=== PATIENT | female | born 1950 | race Caucasian/White ===

== ENCOUNTER → 2020-09-29 | Outpatient (CLI) | payer OTHER ==
--- NOTE | 2020-09-29 12:47 | XR ---
Right foot HISTORY: Trauma and pain 3 views of the right foot Postop changes are noted to the first and second digits. Bone mineralization is reduced. There is sof t tissue swelling present. Alignment is maintained. AP exam appears rotated. Metatarsophalangeal join t of the first digit shows arthropathy change. IMPRESSION: No acute fracture or dislocation is evident.
--- NOTE | 2020-09-29 13:52 | XR ---
Right ankle HISTORY: Trauma and pain 3 views the right ankle There is soft tissue swelling present. Alignment and joint spaces are maintained. IMPRESSION: No fracture or dislocation.
== END | disposition home or self-care (01) ==
LOC: RADXRMAIN 11:42
PROVIDERS: ATTEND Emergency Medicine
DX: S93.401A Sprain of unspecified ligament of right ankle, initial encounter (principal); S93.601A Unspecified sprain of right foot, initial encounter